=== PATIENT | male | born 1935 | race Caucasian/White ===

== ENCOUNTER → 2017-10-31 | Outpatient (CLI) | payer MEDICARE, OTHER ==
[~2017-10-31] MED LIST: ADVAIR 250/501 DISK IH; ALFUZOSIN HCL10 MG PO; ASPIR-LOW81 MG PO; GREEN COFFEE B400 MG PO; LIPITOR10 MG PO; LISINOPRIL2.5 MG PO; OMEPRAZOLE40 M1 PO; VENTOLIN HFA18 GM IH; VIAGRA100 MG PO; ZYRTEC10 M2 PO; [UNRECOGNIZED DRUG - OTHER] PO
== END | disposition home or self-care (01) ==
LOC: CDC 14:24
DX: Z01.810 Encounter for preprocedural cardiovascular examination (principal); K22.70 Barrett's esophagus without dysplasia; Z95.0 Presence of cardiac pacemaker
CPT/HCPCS: 93000